=== PATIENT | female | born 1995 | race African-American/Black ===

== ENCOUNTER 2017-06-04 01:43 | Emergency (ER) | payer OTHER ==
[~2017-06-04] VITALS: Ht 157.5 cm; Wt 105.7 kg
[2017-06-04 02:00] VITALS: BP 124/74
[2017-06-04] MEDS ORDERED: IBUPROFEN600 MG ORAL (02:15)
[2017-06-04] MEDS ORDERED: Bacitracin Oint UD TOPIC ONE (02:15)
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
[2017-06-04 02:30] VITALS: BP 118/79
== END 2017-06-04 02:30 | disposition home or self-care (01) ==
LOC: EMR 02:08
DX: S40.812A Abrasion of left upper arm, initial encounter (principal); S70.12XA Contusion of left thigh, initial encounter; V43.62XA Car passenger injured in collision with other type car in traffic accident, initial encounter; Y92.410 Unspecified street and highway as the place of occurrence of the external cause
CPT/HCPCS: 99283